=== PATIENT | female | born 1975 | race Caucasian/White ===

== ENCOUNTER 2018-04-03 11:03 | Emergency (ER) | payer BC ==
[2018-04-03] MEDS ORDERED: Aspirin 81 MG Tab.Chew PO ONE (11:21)
[2018-04-03 11:49] LABS: CHLORIDE,CL 105 mmol/L (98-107); SODIUM,NA 140 mmol/L (136-145)
[2018-04-03] MEDS ORDERED: LORazepam 0.5 MG Tab PO ONE (12:20)
[2018-04-03] MEDS ORDERED: LORazepam 1 MG Tab PO ONE (12:21)
--- NOTE | 2018-04-03 12:29 | EDM.PDOC ---
ED HPI GENERAL MEDICAL PROBLEM - General Chief Complaint: Chest Pain Stated Complaint: CHEST PAIN Time Seen by Provider: 04/03/18 11:10 Source of Information: Reports: Patient History Limitations: Reports: No Limitations - History of Present Illness INITIAL COMMENTS - FREE TEXT/NARRATIVE: Patient is a 42-year-old who calls with intermittent chest pain states this has been going on for quite a while she was seen by cardiology had an anger On Wednesday which showed normal coronaries and there is se tricuspid valve regurgitation at this time she was scheduled for surgery Onset: Gradual Duration: Day(s):, Chronic Location: Reports: Chest Quality: Reports: Pressure Severity: Moderate Improves with: Reports: None Worsens with: Reports: Other (Stress) Context: Reports: Other (Stress) Associated Symptoms: Reports: Chest Pain Chest Pain Score (Numeric/FACES): 4 - Related Data Allergies Allergy/AdvReac Type Severity Reaction Status Date / Time No Known Allergies Allergy Verified 04/03/18 11:16 Home Meds: Home Meds Ibuprofen 800 mg PO ASDIRECTED 04/03/18 [History] Past Medical History Cardiovascular History: Reports: Heart Murmur, Other (See Below) Other Cardiovascular History: Upcoming bicuspid valve replacement 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 - Past Surgical History Cardiovascular Surgical History: Reports: Other (See Below) Other Cardiovascular Surgeries/Procedures: Angiogram, TERA Social & Family History - Tobacco Use Smoking Status *Q: Current Every Day Smoker Years of Tobacco use: 25 Packs/Tins Daily: 0.5 ED ROS GENERAL - Review of Systems Review Of Systems: See Below Constitutional: Reports: No Symptoms HEENT: Reports: No Symptoms Respiratory: Reports: No Symptoms Cardiovascular: Reports: Chest Pain, Dyspnea on Exertion, Palpitations Endocrine: Reports: No Symptoms GI/Abdominal: Reports: No Symptoms : Reports: No Symptoms Musculoskeletal: Reports: No Symptoms Skin: Reports: No Symptoms Neurological: Reports: No Symptoms Psychiatric: Reports: No Symptoms Hematologic/Lymphatic: Reports: No Symptoms Immunologic: Reports: No Symptoms ED EXAM, GENERAL - Physical Exam Exam: See Below Exam Limited By: No Limitations General Appearance: Alert, WD/WN, No Apparent Distress Ears: Normal External Exam, Normal Canal, Hearing Grossly Normal, Normal TMs Ear Exam: Bilateral Ear: Auricle Normal, Canal Normal, TM normal Nose: Normal Inspection, Normal Mucosa, No Blood Throat/Mouth: Normal Inspection, Normal Lips, Normal Teeth, Normal Gums, Normal Oropharynx, Normal Voice, No Airway Compromise Head: Atraumatic, Normocephalic Neck: Normal Inspection, Supple, Non-Tender, Full Range of Motion Respiratory/Chest: No Respiratory Distress, Lungs Clear, Normal Breath Sounds, No Accessory Muscle Use, Chest Non-Tender Cardiovascular: Regular Rate, Rhythm, No Edema, Systolic Murmur GI/Abdominal: Normal Bowel Sounds, Soft, Non-Tender, No Organomegaly, No Distention, No Abnormal Bruit, No Mass (Female) Exam: Normal External Exam, Normal Speculum Exam, Normal Bimanual Exam Rectal (Female) Exam: Normal Exam, Normal Rectal Tone Back Exam: Normal Inspection, Full Range of Motion, NT Extremities: Normal Inspection, Normal Range of Motion, Non-Tender, Normal Capillary Refill, No Pedal Edema Neurological: Alert, Oriented, CN II-XII Intact, Normal Cognition, Normal Gait, Normal Reflexes, No Motor/Sensory Deficits Psychiatric: Normal Affect, Normal Mood Skin Exam: Warm, Dry, Intact, Normal Color, No Rash Lymphatic: No Adenopathy Course - Vital Signs Last Recorded V/S: Last Vital Signs Temp 97 F 04/03/18 11:18 Pulse 58 L 04/03/18 11:18 Resp 14 04/03/18 11:18 BP 138/62 04/03/18 11:18 Pulse Ox 99 04/03/18 11:18 - Orders/Labs/Meds Orders: Active Orders 24 hr Category Date Time Status EKG Documentation Completion [RC] ASDIRECTED Care 04/03/18 11:20 Active CXR [Chest 2V] [CR] Stat Exams 04/03/18 11:17 Taken EKG 12 Lead [EK] Routine Ther 04/03/18 11:20 Ordered Labs: Laboratory Tests 04/03/18 04/03/18 04/03/18 Range/Units 11:22 11:22 11:22 WBC 6.4 (4.0-10.2) K/uL RBC 4.19 (3.77-5.09) M/uL Hgb 13.0 (11.7-15.5) g/dL Hct 39.4 (34.0-46.0) % MCV 94.0 (84.0-98.0) fL MCH 31.0 (28.2-33.3) pg MCHC 33.0 (31.7-36.0) g/dL RDW 13.3 (11.2-14.1) % Plt Count 189 (150-350) K/uL Neut % (Auto) 69.1 (45.0-80.0) % Lymph % (Auto) 22.0 (10.0-50.0) % [place] % (Auto) 6.4 (2.0-14.0) % Eos % (Auto) 2.0 (0.0-5.0) % Baso % (Auto) 0.5 (0.0-2.0) % Neut # (Auto) 4.39 (1.40-7.00) K/uL Lymph # (Auto) 1.40 (0.50-3.50) K/uL [place] # (Auto) 0.41 (0.00-1.00) K/uL Eos # (Auto) 0.13 (0.00-0.50) K/uL Baso # (Auto) 0.03 (0.00-0.20) K/uL D-Dimer, Quantitative 143 (0-400) ng/mL Sodium 140 (136-145) mmol/L Potassium 3.6 (3.5-5.1) mmol/L Chloride 105 (98-107) mmol/L Carbon Dioxide 26.9 (21.0-32.0) mmol/L BUN 19 H (7-18) mg/dL Creatinine 0.78 (0.51-1.17) mg/dL Est Cr Clr Drug Dosing 93.81 mL/min Estimated GFR (MDRD) > 60 mL/min Glucose 105 (74-106) mg/dL Calcium 9.0 (8.5-10.1) mg/dL Troponin I 0.006 (0.000-0.056) ng/mL Meds: Medications Discontinued Medications Generic Name Dose Route Start Last Admin Trade Name Freq PRN Reason Stop Dose Admin Aspirin 324 mg 04/03/18 11:21 04/03/18 11:28 Aspirin PO 04/03/18 11:22 324 mg ONETIME ONE Administration Lorazepam 0.5 mg 04/03/18 12:20 Ativan PO 04/03/18 12:21 ONETIME ONE Lorazepam 1 mg 04/03/18 12:21 Ativan PO 04/03/18 12:22 ONETIME ONE Departure - Departure Time of Disposition: 12:30 Disposition: Home, Self-Care 01 Condition: Good Clinical Impression: Acute anxiety Tricuspid valve regurgitation Qualifiers: Cardiac valve disease etiology: etiology unspecified Qualified Code(s): I07.1 - Rheumatic tricuspid insufficiency Instructions: Nonspecific Chest Pain, [id number] Referrals: Sridevi Vazquez PA-C [Primary Care Provider] - Care Plan Goals: Patient will be sent on Ativan half a milligram twice daily for anxiety she is to quit smoking she is to follow-up with her primary or cardiology as needed at this time BMP was negative D dimers were negative troponins were negative will send home with - My Orders Last 24 Hours: My Active Orders 04/03/18 11:17 CXR [Chest 2V] [CR] Stat 04/03/18 11:20 EKG Documentation Completion [RC] ASDIRECTED EKG 12 Lead [EK] Routine - Assessment/Plan Last 24 Hours: My Active Orders 04/03/18 11:17 CXR [Chest 2V] [CR] Stat 04/03/18 11:20 EKG Documentation Completion [RC] ASDIRECTED EKG 12 Lead [EK] Routine
== END 2018-04-03 12:45 | disposition home or self-care (01) ==
LOC: LL.ED 11:03
DX: I07.1 Rheumatic tricuspid insufficiency (principal); F41.9 Anxiety disorder, unspecified; F17.210 Nicotine dependence, cigarettes, uncomplicated
CPT/HCPCS: 36000; 36415; 71046; 80048; 84484; 85025; 85379; 93005; 99285; A9270

== ENCOUNTER 2019-07-31 10:56 | Observation (INO) | payer BC ==
[2019-07-31] MEDS ORDERED: Metoprolol Tartrate 25 MG Tab PO ONE ×2 (11:13→12:38)
[2019-07-31 11:52] LABS: CHLORIDE,CL 106 mmol/L (98-107); SODIUM,NA 144 mmol/L (136-145)
--- NOTE | 2019-07-31 12:29 | EDM.PDOC ---
ED HPI GENERAL MEDICAL PROBLEM - General Chief Complaint: Chest Pain Stated Complaint: hrt rate feels irregular,lt arm tingling/heavy Time Seen by Provider: 07/31/19 11:10 Source of Information: Reports: Patient History Limitations: Reports: No Limitations - History of Present Illness INITIAL COMMENTS - FREE TEXT/NARRATIVE: Patient is a 44-year-old with known coronary arterial disease known heart disease she has history of aortic bowel replacement with a mechanical valve and had done well she also has a paced ventricular rhythm at this time. Onset: Today Duration: Hour(s):, Constant, Improving Location: Reports: Chest, Upper Extremity, Left (Tingling sensation) Quality: Reports: Dull Severity: Moderate Improves with: Reports: None - Related Data Allergies Allergy/AdvReac Type Severity Reaction Status Date / Time No Known Allergies Allergy Verified 07/31/19 11:32 Home Meds: Home Meds ALPRAZolam [Xanax] 0.125 mg PO Q12HR PRN 07/31/19 [History] Acetaminophen [Tylenol Extra Strength] 1,000 mg PO Q4HR PRN 07/31/19 [History] Amoxicillin 2,000 mg PO ONETIME PRN 07/31/19 [History] Aspirin [Ecotrin EC] 81 mg PO DAILY 07/31/19 [History] Cyclobenzaprine [Flexeril] 10 mg PO TID PRN 07/31/19 [History] Warfarin Sodium [Coumadin] 2.5 mg PO ASDIRECTED 07/31/19 [History] Warfarin [Coumadin] 5 mg PO ASDIRECTED 07/31/19 [History] atorvaSTATin [Lipitor] 20 mg PO ASDIRECTED 07/31/19 [History] buPROPion [buPROPion XL] 150 mg PO DAILY 07/31/19 [History] Past Medical History HEENT History: Reports: Impaired Vision Other HEENT History: wears glasses Cardiovascular History: Reports: CAD, Heart Murmur, Hypertension, Other (See Below) Other Cardiovascular History: congenital bicuspid aortic valve,Upcoming bicuspid valve replacement, aortic stenosis 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 Musculoskeletal History: Reports: Other (See Below) Other Musculoskeletal History: DJD,protruded lumbar disc Neurological History: Reports: Migraines Psychiatric History: Reports: ADD, Depression Endocrine/Metabolic History: Reports: Obesity/BMI 30+ Hematologic History: Reports: Other (See Below) Other Hematologic History: on chronic warfarin - Past Surgical History HEENT Surgical History: Reports: Myringotomy w Tube(s) Cardiovascular Surgical History: Reports: Pacer, Valve Replacement, Other (See Below) Other Cardiovascular Surgeries/Procedures: Angiogram, TERA, aortic valve replacement with metallic valve GI Surgical History: Reports: Appendectomy Female Surgical History: Reports: Section, Hysterectomy Social & Family History - Tobacco Use Smoking Status *Q: Former Smoker Years of Tobacco use: 30 Used Tobacco, but Quit: Yes Month/Year Tobacco Last Used: 07/2018 - Caffeine Use Caffeine Use: Reports: Coffee Other Caffeine Use: 2 cups with elevate - Recreational Drug Use Recreational Drug Use: No ED ROS GENERAL - Review of Systems Review Of Systems: See Below Constitutional: Reports: No Symptoms HEENT: Reports: No Symptoms Respiratory: Reports: No Symptoms Cardiovascular: Reports: Chest Pain, Blood Pressure Problem Endocrine: Reports: No Symptoms GI/Abdominal: Reports: No Symptoms : Reports: No Symptoms Musculoskeletal: Reports: No Symptoms Skin: Reports: No Symptoms Neurological: Reports: No Symptoms Hematologic/Lymphatic: Reports: No Symptoms Immunologic: Reports: No Symptoms ED EXAM, GENERAL - Physical Exam Exam: See Below Exam Limited By: No Limitations General Appearance: Alert, WD/WN, No Apparent Distress Eye Exam: Bilateral Eye: Abnormal EOM, Abnormal Pupil Ears: Normal External Exam, Normal Canal, Hearing Grossly Normal, Normal TMs Ear Exam: Bilateral Ear: Auricle Normal, Canal Normal, TM normal Nose: Normal Inspection, Normal Mucosa, No Blood Throat/Mouth: Normal Inspection, Normal Lips, Normal Teeth, Normal Gums, Normal Oropharynx, Normal Voice, No Airway Compromise Head: Atraumatic, Normocephalic Neck: Normal Inspection, Supple, Non-Tender, Full Range of Motion Respiratory/Chest: No Respiratory Distress, Lungs Clear, Normal Breath Sounds, No Accessory Muscle Use, Chest Non-Tender Cardiovascular: Regular Rate, Rhythm (Patient is paced), Other (Paced rhythm with an opening snap at the aortic valve) GI/Abdominal: Normal Bowel Sounds, Soft, Non-Tender, No Organomegaly, No Distention, No Abnormal Bruit, No Mass (Female) Exam: Normal External Exam, Deferred Rectal (Female) Exam: Deferred Back Exam: Decreased Range of Motion Extremities: Other (Left arm tingling sensation) Neurological: Alert, Oriented, CN II-XII Intact, Normal Cognition, Normal Gait, Normal Reflexes, No Motor/Sensory Deficits Psychiatric: Normal Affect, Normal Mood Skin Exam: Warm, Dry, Intact, Normal Color, No Rash Lymphatic: No Adenopathy Course - Vital Signs Last Recorded V/S: Last Vital Signs Temp 97.8 F 07/31/19 11:01 Pulse 70 07/31/19 11:54 Resp 17 07/31/19 11:54 BP 137/70 07/31/19 11:54 Pulse Ox 100 07/31/19 11:54 - Orders/Labs/Meds Orders: Active Orders 24 hr Category Date Time Status EKG Documentation Completion [RC] ASDIRECTED Care 07/31/19 11:12 Active Chest 1V Frontal [CR] Stat Exams 07/31/19 11:13 Taken Labs: Laboratory Tests 07/31/19 07/31/19 07/31/19 Range/Units 11:10 11:10 11:10 WBC 7.4 (4.0-10.2) K/uL RBC 4.37 (3.77-5.09) M/uL Hgb 13.1 (11.7-15.5) g/dL Hct 40.2 (34.0-46.0) % MCV 92.0 (84.0-98.0) fL MCH 30.0 (28.2-33.3) pg MCHC 32.6 (31.7-36.0) g/dL RDW 13.2 (11.2-14.1) % Plt Count 270 (150-350) K/uL Neut % (Auto) 62.1 (45.0-80.0) % Lymph % (Auto) 26.7 (10.0-50.0) % [place] % (Auto) 7.9 (2.0-14.0) % Eos % (Auto) 2.9 (0.0-5.0) % Baso % (Auto) 0.4 (0.0-2.0) % Neut # (Auto) 4.57 (1.40-7.00) K/uL Lymph # (Auto) 1.96 (0.50-3.50) K/uL [place] # (Auto) 0.58 (0.00-1.00) K/uL Eos # (Auto) 0.21 (0.00-0.50) K/uL Baso # (Auto) 0.03 (0.00-0.20) K/uL PT 16.7 H D (9.5-12.0) SEC INR 1.6 APTT 39.7 H (21.0-31.3) SEC D-Dimer, Quantitative (0-400) ng/mL Sodium 144 (136-145) mmol/L Potassium 3.4 L (3.5-5.1) mmol/L Chloride 106 (98-107) mmol/L Carbon Dioxide 25.9 (21.0-32.0) mmol/L BUN 10 (7-18) mg/dL Creatinine 0.75 (0.51-1.17) mg/dL Est Cr Clr Drug Dosing 95.55 mL/min Estimated GFR (MDRD) > 60 mL/min Glucose 80 (74-106) mg/dL Lactic Acid (0.4-2.0) mmol/L Calcium 9.0 (8.5-10.1) mg/dL Magnesium 1.9 (1.8-2.4) mg/dL Total Bilirubin 0.3 (0.2-1.0) mg/dL AST 18 (15-37) U/L ALT 28 (12-78) U/L Alkaline Phosphatase 79 (46-116) IU/L Creatine Kinase 57 (26-308) U/L Creatine Kinase Index 1.1 (0.0-2.5) % CK-MB (CK-2) 0.60 (0.00-3.60) ng/mL Troponin I 0.000 (0.000-0.056) ng/mL NT-Pro-B Natriuret Pep 236 H (0-125) pg/mL Total Protein 7.5 (6.4-8.2) g/dL Albumin 3.8 (3.4-5.0) g/dL TSH, Ultra Sensitive 1.876 (0.358-3.740) mIU/mL 07/31/19 07/31/19 Range/Units 11:10 11:20 WBC (4.0-10.2) K/uL RBC (3.77-5.09) M/uL Hgb (11.7-15.5) g/dL Hct (34.0-46.0) % MCV (84.0-98.0) fL MCH (28.2-33.3) pg MCHC (31.7-36.0) g/dL RDW (11.2-14.1) % Plt Count (150-350) K/uL Neut % (Auto) (45.0-80.0) % Lymph % (Auto) (10.0-50.0) % [place] % (Auto) (2.0-14.0) % Eos % (Auto) (0.0-5.0) % Baso % (Auto) (0.0-2.0) % Neut # (Auto) (1.40-7.00) K/uL Lymph # (Auto) (0.50-3.50) K/uL [place] # (Auto) (0.00-1.00) K/uL Eos # (Auto) (0.00-0.50) K/uL Baso # (Auto) (0.00-0.20) K/uL PT (9.5-12.0) SEC INR APTT (21.0-31.3) SEC D-Dimer, Quantitative < 100 (0-400) ng/mL Sodium (136-145) mmol/L Potassium (3.5-5.1) mmol/L Chloride (98-107) mmol/L Carbon Dioxide (21.0-32.0) mmol/L BUN (7-18) mg/dL Creatinine (0.51-1.17) mg/dL Est Cr Clr Drug Dosing mL/min Estimated GFR (MDRD) mL/min Glucose (74-106) mg/dL Lactic Acid 1.2 (0.4-2.0) mmol/L Calcium (8.5-10.1) mg/dL Magnesium (1.8-2.4) mg/dL Total Bilirubin (0.2-1.0) mg/dL AST (15-37) U/L ALT (12-78) U/L Alkaline Phosphatase (46-116) IU/L Creatine Kinase (26-308) U/L Creatine Kinase Index (0.0-2.5) % CK-MB (CK-2) (0.00-3.60) ng/mL Troponin I (0.000-0.056) ng/mL NT-Pro-B Natriuret Pep (0-125) pg/mL Total Protein (6.4-8.2) g/dL Albumin (3.4-5.0) g/dL TSH, Ultra Sensitive (0.358-3.740) mIU/mL Meds: Medications Discontinued Medications Generic Name Dose Route Start Last Admin Trade Name Freq PRN Reason Stop Dose Admin Metoprolol Tartrate 25 mg 07/31/19 11:13 07/31/19 11:17 Lopressor PO 07/31/19 11:14 25 mg ONETIME ONE Administration Departure - Departure Time of Disposition: 12:34 Disposition: Refer to Observation Clinical Impression: Atypical chest pain Referrals: Sridevi Vazquez PA-C [Primary Care Provider] - Additional Instructions: Spoke with cardiology patient has a pace rhythm therefore the EKG changes is probably secondary to the paced rhythm cardiology said to admit her and rule out at this time patient is doing much better relaxing by - My Orders Last 24 Hours: My Active Orders 07/31/19 11:12 EKG Documentation Completion [RC] ASDIRECTED 07/31/19 11:13 Chest 1V Frontal [CR] Stat - Assessment/Plan Last 24 Hours: My Active Orders 07/31/19 11:12 EKG Documentation Completion [RC] ASDIRECTED 07/31/19 11:13 Chest 1V Frontal [CR] Stat
[2019-07-31] MEDS ORDERED: Sodium Chloride 0.9% 10 ML Syringe FLUSH PRN (12:38)
[2019-07-31] MEDS ORDERED: Aspirin 81 MG Tab.Chew PO ONE (12:38)
[2019-07-31] MEDS ORDERED: Nitroglycerin 0.4 MG Tab.SL SL PRN (12:38)
[2019-07-31] MEDS: Enoxaparin 80 MG/0.8 ML Syringe SUBCUT SCH (14:09)
[2019-07-31] MEDS ORDERED: Temazepam 15 MG Cap PO PRN (19:56)
[2019-08-01] MEDS: Enoxaparin 80 MG/0.8 ML Syringe SUBCUT SCH (07:00)
--- NOTE | 2019-08-01 07:40 | PCM.DCSUM1 ---
Discharge Summary - Hospital Course Free Text/Narrative:: Patient is a 44-year-old who seen today for discharge home troponins3 were negative INR today was 1.3 at this time patient will be sent home with Coumadin 2.5 mg daily 3 days total follow-up with primary Diagnosis: Stroke: No - Discharge Data Discharge Date: 08/01/19 Discharge Disposition: Home, Self-Care 01 Condition: Good - Referral to Home Health Primary Care Physician: Sridevi Vazquez PA-C - Patient Instructions Diet: Heart Healthy Diet Driving: May Drive Today Showering/Bathing: January Shower - Discharge Plan *PRESCRIPTION DRUG MONITORING PROGRAM REVIEWED*: No Home Medications: Home Meds ALPRAZolam [Xanax] 0.125 mg PO Q12HR PRN 07/31/19 [History] Acetaminophen [Tylenol Extra Strength] 1,000 mg PO Q4HR PRN 07/31/19 [History] Amoxicillin 2,000 mg PO ONETIME PRN 07/31/19 [History] Aspirin [Ecotrin EC] 81 mg PO DAILY 07/31/19 [History] Cyclobenzaprine [Flexeril] 10 mg PO TID PRN 07/31/19 [History] Warfarin Sodium [Coumadin] 2.5 mg PO ASDIRECTED 07/31/19 [History] Warfarin [Coumadin] 5 mg PO ASDIRECTED 07/31/19 [History] atorvaSTATin [Lipitor] 20 mg PO ASDIRECTED 07/31/19 [History] buPROPion [buPROPion XL] 150 mg PO DAILY 07/31/19 [History] Forms: ED Department Discharge Referrals: Sridevi Vazquez PA-C [Primary Care Provider] - - Discharge Summary/Plan Comment DC Time >30 min.: No Discharge Summary/Plan Comment: Patient will be sent home on Coumadin 2.5 mg by mouth daily 3 days then recheck PT/INR she should also take metoprolol 25 mg ER daily - General Info Date of Service: 08/01/19 Functional Status: Reports: Tolerating Diet - Review of Systems General: Reports: No Symptoms HEENT: Reports: No Symptoms Pulmonary: Reports: No Symptoms Cardiovascular: Reports: No Symptoms Gastrointestinal: Reports: No Symptoms Skin: Reports: No Symptoms Neurological: Reports: No Symptoms Psychiatric: Reports: No Symptoms - Patient Data Vitals - Most Recent: Last Vital Signs Temp 98.4 F 08/01/19 07:08 Pulse 70 08/01/19 07:08 Resp 16 08/01/19 07:08 BP 136/73 08/01/19 07:08 Pulse Ox 100 08/01/19 07:08 Weight - Most Recent: 195 lb 14.4 oz Lab Results - Last 24 hrs: Laboratory Results - last 24 hr 07/31/19 07/31/19 07/31/19 Range/Units 11:10 11:10 11:10 WBC 7.4 (4.0-10.2) K/uL RBC 4.37 (3.77-5.09) M/uL Hgb 13.1 (11.7-15.5) g/dL Hct 40.2 (34.0-46.0) % MCV 92.0 (84.0-98.0) fL MCH 30.0 (28.2-33.3) pg MCHC 32.6 (31.7-36.0) g/dL RDW 13.2 (11.2-14.1) % Plt Count 270 (150-350) K/uL Neut % (Auto) 62.1 (45.0-80.0) % Lymph % (Auto) 26.7 (10.0-50.0) % [place] % (Auto) 7.9 (2.0-14.0) % Eos % (Auto) 2.9 (0.0-5.0) % Baso % (Auto) 0.4 (0.0-2.0) % Neut # (Auto) 4.57 (1.40-7.00) K/uL Lymph # (Auto) 1.96 (0.50-3.50) K/uL [place] # (Auto) 0.58 (0.00-1.00) K/uL Eos # (Auto) 0.21 (0.00-0.50) K/uL Baso # (Auto) 0.03 (0.00-0.20) K/uL PT 16.7 H D (9.5-12.0) SEC INR 1.6 APTT 39.7 H (21.0-31.3) SEC D-Dimer, Quantitative (0-400) ng/mL Sodium 144 (136-145) mmol/L Potassium 3.4 L (3.5-5.1) mmol/L Chloride 106 (98-107) mmol/L Carbon Dioxide 25.9 (21.0-32.0) mmol/L BUN 10 (7-18) mg/dL Creatinine 0.75 (0.51-1.17) mg/dL Est Cr Clr Drug Dosing 95.55 mL/min Estimated GFR (MDRD) > 60 mL/min Glucose 80 (74-106) mg/dL Lactic Acid (0.4-2.0) mmol/L Calcium 9.0 (8.5-10.1) mg/dL Magnesium 1.9 (1.8-2.4) mg/dL Total Bilirubin 0.3 (0.2-1.0) mg/dL AST 18 (15-37) U/L ALT 28 (12-78) U/L Alkaline Phosphatase 79 (46-116) IU/L Creatine Kinase 57 (26-308) U/L Creatine Kinase Index 1.1 (0.0-2.5) % CK-MB (CK-2) 0.60 (0.00-3.60) ng/mL Troponin I 0.000 (0.000-0.056) ng/mL NT-Pro-B Natriuret Pep 236 H (0-125) pg/mL Total Protein 7.5 (6.4-8.2) g/dL Albumin 3.8 (3.4-5.0) g/dL TSH, Ultra Sensitive 1.876 (0.358-3.740) mIU/mL 07/31/19 07/31/19 07/31/19 Range/Units 11:10 11:20 16:45 WBC (4.0-10.2) K/uL RBC (3.77-5.09) M/uL Hgb (11.7-15.5) g/dL Hct (34.0-46.0) % MCV (84.0-98.0) fL MCH (28.2-33.3) pg MCHC (31.7-36.0) g/dL RDW (11.2-14.1) % Plt Count (150-350) K/uL Neut % (Auto) (45.0-80.0) % Lymph % (Auto) (10.0-50.0) % [place] % (Auto) (2.0-14.0) % Eos % (Auto) (0.0-5.0) % Baso % (Auto) (0.0-2.0) % Neut # (Auto) (1.40-7.00) K/uL Lymph # (Auto) (0.50-3.50) K/uL [place] # (Auto) (0.00-1.00) K/uL Eos # (Auto) (0.00-0.50) K/uL Baso # (Auto) (0.00-0.20) K/uL PT (9.5-12.0) SEC INR APTT (21.0-31.3) SEC D-Dimer, Quantitative < 100 (0-400) ng/mL Sodium (136-145) mmol/L Potassium (3.5-5.1) mmol/L Chloride (98-107) mmol/L Carbon Dioxide (21.0-32.0) mmol/L BUN (7-18) mg/dL Creatinine (0.51-1.17) mg/dL Est Cr Clr Drug Dosing mL/min Estimated GFR (MDRD) mL/min Glucose (74-106) mg/dL Lactic Acid 1.2 (0.4-2.0) mmol/L Calcium (8.5-10.1) mg/dL Magnesium (1.8-2.4) mg/dL Total Bilirubin (0.2-1.0) mg/dL AST (15-37) U/L ALT (12-78) U/L Alkaline Phosphatase (46-116) IU/L Creatine Kinase (26-308) U/L Creatine Kinase Index (0.0-2.5) % CK-MB (CK-2) (0.00-3.60) ng/mL Troponin I 0.002 (0.000-0.056) ng/mL NT-Pro-B Natriuret Pep (0-125) pg/mL Total Protein (6.4-8.2) g/dL Albumin (3.4-5.0) g/dL TSH, Ultra Sensitive (0.358-3.740) mIU/mL 07/31/19 08/01/19 08/01/19 Range/Units 22:30 04:35 04:35 WBC (4.0-10.2) K/uL RBC (3.77-5.09) M/uL Hgb (11.7-15.5) g/dL Hct (34.0-46.0) % MCV (84.0-98.0) fL MCH (28.2-33.3) pg MCHC (31.7-36.0) g/dL RDW (11.2-14.1) % Plt Count (150-350) K/uL Neut % (Auto) (45.0-80.0) % Lymph % (Auto) (10.0-50.0) % [place] % (Auto) (2.0-14.0) % Eos % (Auto) (0.0-5.0) % Baso % (Auto) (0.0-2.0) % Neut # (Auto) (1.40-7.00) K/uL Lymph # (Auto) (0.50-3.50) K/uL [place] # (Auto) (0.00-1.00) K/uL Eos # (Auto) (0.00-0.50) K/uL Baso # (Auto) (0.00-0.20) K/uL PT 14.0 H (9.5-12.0) SEC INR 1.3 APTT (21.0-31.3) SEC D-Dimer, Quantitative (0-400) ng/mL Sodium (136-145) mmol/L Potassium (3.5-5.1) mmol/L Chloride (98-107) mmol/L Carbon Dioxide (21.0-32.0) mmol/L BUN (7-18) mg/dL Creatinine (0.51-1.17) mg/dL Est Cr Clr Drug Dosing mL/min Estimated GFR (MDRD) mL/min Glucose (74-106) mg/dL Lactic Acid (0.4-2.0) mmol/L Calcium (8.5-10.1) mg/dL Magnesium (1.8-2.4) mg/dL Total Bilirubin (0.2-1.0) mg/dL AST (15-37) U/L ALT (12-78) U/L Alkaline Phosphatase (46-116) IU/L Creatine Kinase (26-308) U/L Creatine Kinase Index (0.0-2.5) % CK-MB (CK-2) (0.00-3.60) ng/mL Troponin I 0.000 0.003 (0.000-0.056) ng/mL NT-Pro-B Natriuret Pep (0-125) pg/mL Total Protein (6.4-8.2) g/dL Albumin (3.4-5.0) g/dL TSH, Ultra Sensitive (0.358-3.740) mIU/mL Med Orders - Current: Current Medications Enoxaparin Sodium (Lovenox) 80 mg SUBCUT DAILY CARMINA Last Admin: 08/01/19 07:00 Dose: 80 mg Nitroglycerin (Nitrostat) 0.4 mg SL Q5M PRN PRN Reason: Chest Pain Stop: 08/01/19 12:42 Sodium Chloride (Saline Flush) 10 ml FLUSH ASDIRECTED PRN PRN Reason: Keep Vein Open Last Admin: 07/31/19 20:26 Dose: 10 ml Temazepam (Restoril) 15 mg PO BEDTIME PRN PRN Reason: Insomnia Last Admin: 07/31/19 20:24 Dose: 15 mg Discontinued Medications Aspirin (Aspirin) 324 mg PO ONETIME ONE Stop: 07/31/19 12:39 Last Admin: 07/31/19 14:09 Dose: 324 mg Metoprolol Tartrate (Lopressor) 25 mg PO ONETIME ONE Stop: 07/31/19 11:14 Last Admin: 07/31/19 11:17 Dose: 25 mg Metoprolol Tartrate (Lopressor) 25 mg PO ONETIME ONE Stop: 07/31/19 12:39 Last Admin: 07/31/19 14:16 Dose: Not Given
== END 2019-08-01 08:02 | disposition home or self-care (01) ==
LOC: LL.ED 10:56 → UNDOADMOB 12:40 → LL.MS 12:40
PROVIDERS: ADMIT Family Medicine; ATTEND Family Medicine
DX: R07.89 Other chest pain (principal); I25.10 Atherosclerotic heart disease of native coronary artery without angina pectoris; I10 Essential (primary) hypertension; G43.909 Migraine, unspecified, not intractable, without status migrainosus; M19.90 Unspecified osteoarthritis, unspecified site; F32.9 Major depressive disorder, single episode, unspecified; E66.9 Obesity, unspecified; Z87.891 Personal history of nicotine dependence; Z95.2 Presence of prosthetic heart valve
CPT/HCPCS: 36415; 71045; 80053; 82550; 82553; 83605; 83735; 83880; 84443; 84484; 85025; 85379; 85610; 85730; 93005; 96372; 99285; A9270-GY; G0378; J1650

== ENCOUNTER 2020-03-20 06:52 | Emergency (ER) | payer BC ==
--- NOTE | 2020-03-20 07:02 | EDM.PDOC ---
ED HPI GENERAL MEDICAL PROBLEM - General Chief Complaint: Lower Extremity Injury/Pain Stated Complaint: rolled right ankle Time Seen by Provider: 03/20/20 06:55 Source of Information: Reports: Patient, Old Records ([facility] EMR. No paper hospital chart available.) History Limitations: Reports: No Limitations - History of Present Illness INITIAL COMMENTS - FREE TEXT/NARRATIVE: The patient drove herself to the emergency room via private automobile for evaluation of 04/29 right ankle pain after she twisted her ankle while gardening at home at about 20:00 hours on 03/19. She was stepping off a concrete slab with no history of a fall, head injury, neck/back pain, neurological deficits, or other complaints or injuries. Symptoms have been refractory to ice packs and also Tylenol with last dose at 650 mg at 05:30 a.m. this morning. She denies any previous injury to this ankle. The patient denies any chest pain/pressure, heart flutter, dizziness, orthostasis, orthopnea, diaphoresis, paresthesias, recent decreased exercise tolerance, or any other anginal-type symptoms. No recent history of abdominal pain, heartburn, emesis, diarrhea, melena, gross hematoc hezia, or any food intolerance, including fatty foods, etc., although some intermittent nausea secondary to her pain. The patient also denies any recent fever, cough, wheezing, dyspnea, etc.. Onset: Sudden Onset Date: 03/19/20 Onset Time: 20:00 Duration: Constant, Getting Worse Location: Reports: Lower Extremity, Right. Denies: Head, Face, Neck, Chest, Abdomen, Back, Pelvis, Upper Extremity, Left, Upper Extremity, Right, Lower Extremity, Left, Radiates to Quality: Reports: Throbbing Severity: Moderate Improves with: Reports: Rest Worsens with: Reports: Movement Context: Reports: Trauma (Above) Associated Symptoms: Reports: Nausea/Vomiting (As above). 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: Acetaminophen, Cold Therapy Right Ankle Pain Score (Numeric/FACES): 8 - Related Data Allergies Allergy/AdvReac Type Severity Reaction Status Date / Time serotonin reuptake inhibitors Allergy Other Uncoded 03/20/20 07:02 Home Meds: Home Meds ALPRAZolam [Xanax] 0.125 mg PO Q12HR PRN 07/31/19 [History] Amoxicillin 2,000 mg PO ONETIME PRN 07/31/19 [History] Aspirin [Ecotrin EC] 81 mg PO DAILY 07/31/19 [History] Cyclobenzaprine [Flexeril] 10 mg PO TID PRN 07/31/19 [History] Warfarin Sodium [Coumadin] 2.5 mg PO ASDIRECTED 07/31/19 [History] Warfarin [Coumadin] 5 mg PO ASDIRECTED 07/31/19 [History] atorvaSTATin [Lipitor] 20 mg PO ASDIRECTED 07/31/19 [History] buPROPion [buPROPion XL] 150 mg PO DAILY 07/31/19 [History] Acetaminophen 2 tab PO Q4HR PRN 03/20/20 [History] Past Medical History HEENT History: Reports: Allergic Rhinitis, Impaired Vision, Otitis Media Other HEENT History: Patient wears glasses. Cardiovascular History: Reports: Arrhythmia, CAD, Heart Murmur, High Cholesterol, Hypertension, Pacemaker, Other (See Below). Denies: Afib, Aneurysm, Blood Clots/VTE/DVT, Cardiomyopathy, Heart Failure Other Cardiovascular History: Congenital bicuspid aortic valve with history of severe aortic valve stenosis and insufficiency requiring valvular replacement as below. Long history of bradycardia, including prior to pacemaker placement as below. PACs, PVCs, and complete right bundle branch block. CAR DETAILER History: Reports: Dysfunctional Uterine Bleeding, Fibroids, : 3 Para: 3 LMP (Approximate): Other (See Below) Other CAR DETAILER History: Surgical menopause. All deliveries by with premature delivery at 6 months gestation. Otherwise no complications during deliveries or pregnancies Musculoskeletal History: Reports: Arthritis, Back Pain, Chronic, Osteoarthritis, Other (See Below). Denies: Fracture Other Musculoskeletal History: DJD, protruded lumbar disc Neurological History: Reports: Headaches, Chronic, Migraines Psychiatric History: Reports: ADD, Anxiety, Depression Endocrine/Metabolic History: Reports: Obesity/BMI 30+ Hematologic History: Reports: Anemia, Iron Deficiency, Other (See Below). Denies: Blood Transfusion(s) Other Hematologic History: History of severe anemia secondary to dysfunctional uterine bleeding. Note current chronic warfarin therapy secondary to her aortic valve replacement. - Past Surgical History HEENT Surgical History: Reports: Myringotomy w Tube(s), Other (See Below). Denies: Adenoidectomy, Tonsillectomy Other HEENT Surgeries/Procedures: PE tubes as a child. Cardiovascular Surgical History: Reports: Pacer, Valve Replacement, Other (See Below). Denies: Coronary Artery Bypass, Coronary Artery Stent Other Cardiovascular Surgeries/Procedures: Mechanical aortic valve replacement on 04/27/18. Pacemaker placement on 04/28/18. GI Surgical History: Reports: Appendectomy, Other (See Below) Other GI Surgeries/Procedures: Appendectomy in her 30s. Female Surgical History: Reports: Section, Hysterectomy, Other (See Below). Denies: Salpingo-Oophorectomy, Tubal Ligation Other Female Surgeries/Procedures: Partial hysterectomy secondary to dysfunctional uterine bleeding at age 31. - Past Imaging History Past Imaging History: Reports: Angiography (Heart catheterization on 04/14/18.), Cardiac Echo (04/14/18 with ejection fraction of 65%.), CAT Scan (CT of the chest on 04/14/18.), Mammogram (Last in July 2019 with records not available), PFT (04/14/18.), Stress Testing (Low level cardiac stress test on 05/12/18.) Social & Family History - Tobacco Use Smoking Status *Q: Former Smoker Tobacco Use Within Last Twelve Months: No Years of Tobacco use: 29 Packs/Tins Daily: 1 Packs/Tins Daily Comment: Smoked between ages 13 and 42. 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 ED EXAM, GENERAL - Physical Exam Exam: See Below Exam Limited By: No Limitations General Appearance: Alert, WD/WN, No Apparent Distress, Anxious (Mild) Head: Atraumatic, Normocephalic. No: Facial Swelling, Facial Tenderness, Sinus Tenderness Neck: Normal Inspection, Supple, Non-Tender, Full Range of Motion. No: Lymphadenopathy (L), Lymphadenopathy (R), Thyromegaly Respiratory/Chest: No Respiratory Distress, Lungs Clear, Normal Breath Sounds, No Accessory Muscle Use, Chest Non-Tender. No: Pleural Rub, Retractions Cardiovascular: Normal Peripheral Pulses, Regular Rate, Rhythm, No Edema, No Gallop, No JVD, No Murmur (With mechanical aortic valve click), No Rub. No: Gallop/S3, Gallop/S4, Extra Beats, Friction Rub Peripheral Pulses: 2+: Radial (L), Radial (R), Dorsalis Pedis (R) GI/Abdominal: Normal Bowel Sounds, Soft, Non-Tender, No Organomegaly, No Distention, No Abnormal Bruit, No Mass, Pelvis Stable, Other (obese). No: Guarding (Female) Exam: Deferred Rectal (Female) Exam: Deferred Back Exam: Normal Inspection, Full Range of Motion. No: CVA Tenderness (L), CVA Tenderness (R), Muscle Spasm Extremities: No Pedal Edema, Normal Capillary Refill, Joint Swelling (Mild to moderate right lateral malleolar swelling), Leg Pain (Moderate palpation pain over the lateral right ankle with no joint instability including negative anterior drawer test, etc. by limited exam), Limited Range of Motion (Right ankle). No: Pedal Edema, Tabby's Sign Neurological: Alert, Oriented, CN II-XII Intact, Normal Cognition, Normal Gait, No Motor/Sensory Deficits Psychiatric: Anxious (Mild). No: Depressed Mood Skin Exam: Warm, Dry, Intact, Normal Color, No Rash, Tattoo(s) (Multiple). No: Diaphoretic, Wound/Incision Lymphatic: No Adenopathy ED TRAUMA EXTREMITY PROCEDURES - Splinting Right Lower Extremity Splint Site: Right ankle Pre-Procedure NV Status: Normal Post-Procedure NV Status: Normal Splint Material: Air Splint, Other (Reynaldo wrap) Splint Design: Stirrup Applied & Form Fitted By: Nurse Provider Post-Splint Application NV Check: NV Status Normal, Good Position Complications: No Course - Vital Signs Last Recorded V/S: Last Vital Signs Temp 36.7 C 03/20/20 07:00 Pulse 71 03/20/20 07:00 Resp 18 03/20/20 07:00 BP 120/98 H 03/20/20 07:00 Pulse Ox 99 03/20/20 07:00 Vital Signs - 24 hr 03/20/20 07:00 Temperature [ 36.7 C Temporal] Pulse, 71 Peripheral [ Pulse Oximetry] Respiratory 18 Rate Blood Pressure 120/98 H [Left Upper Arm ] O2 Sat by Pulse 99 Oximetry - Orders/Labs/Meds Orders: Active Orders 24 hr Category Date Time Status Ankle Min 3V Rt [CR] Stat Exams 03/20/20 07:02 Ordered Durable Medical Equipment for Discharge [DME for Oth 03/20/20 07:25 Ordered Discharge] [COMM] Routine Durable Medical Equipment for Discharge [DME for Oth 03/20/20 07:25 Ordered Discharge] [COMM] Routine Durable Medical Equipment for Discharge [DME for Oth 03/20/20 07:26 Ordered Discharge] [COMM] Routine Obtain Past Medical Record [OM.PC] Routine Oth 03/20/20 07:02 Active Labs: None Meds: None - Radiology Interpretation Free Text/Narrative:: X-rays of the right ankle, 3 views, shows no evidence of fracture, dislocation, etc. Mild soft tissue swelling and osteoarthritic changes noted. Departure - Departure Time of Disposition: 07:52 Disposition: Home, Self-Care 01 Condition: Good Clinical Impression: History of aortic valve replacement, Mixed anxiety depressive disorder, Hyperlipidemia Ankle sprain Qualifiers: Encounter type: initial encounter Involved ligament of ankle: tibiofibular ligament Laterality: right Qualified Code(s): S93.431A - Sprain of tibiofibular ligament of right ankle, initial encounter Hypertension Qualifiers: Hypertension type: essential hypertension Qualified Code(s): I10 - Essential (primary) hypertension Osteoarthritis Qualifiers: Osteoarthritis location: multiple joints Osteoarthritis type: primary Qualified Code(s): M89.49 - Other hypertrophic osteoarthropathy, multiple sites - Discharge Information *PRESCRIPTION DRUG MONITORING PROGRAM REVIEWED*: Not Applicable *COPY OF PRESCRIPTION DRUG MONITORING REPORT IN PATIENT SUBHA: Not Applicable Instructions: Crutch Use, Adult, [id number], Ankle Sprain, [id number] Forms: ED Department Discharge, ED Return to Work/School Form Additional Instructions: 1. Followup with your regular provider in 7 days as directed for reevaluation and recommended repeat INR. Repeat x-rays of the right ankle depending on your symptoms at follow-up. Bring these discharge instructions with you to that visit. 2. Tylenol 650 mg by mouth every 4 hours when necessary as directed. Use this medication with discretion as discussed secondary to your current Coumadin therapy 3. Use air ankle splint and Reynaldo wrap at all times with exception of bathing with limited weightbearing on the right leg as tolerated. Crutches to be used as needed and directed 4. Ice packs and leg elevation as discussed 5. Work excuse- See Form 6. Immediately after this visit verify that your cellular telephone's voicemail has been activated and is empty. Also verify that your home telephone's answering machine is operating properly and has space to receive messages. Note that it is sometimes necessary for us to be able to contact you at a later date to discuss your medical care. 7. Please remember that we are ALWAYS here for you and want to answer any questions you may have. Feel free to call the hospital any time and we call you back TR[place]. Sepsis Event Note (ED) - Focused Exam Vital Signs: Vital Signs Temp Pulse Resp BP Pulse Ox 03/20/20 07:00 36.7 C 71 18 120/98 H 99 - Problem List & Annotations (1) Ankle sprain SNOMED Code(s): 31610245 Code(s): S93.409A - SPRAIN OF UNSP LIGAMENT OF UNSPECIFIED ANKLE, INIT ENCNTR Status: Acute Priority: High Current Visit: Yes Onset Date: 03/19/20 Annotation/Comment:: Minor ankle sprain. Symptomatic relief as per discharge instructions. Close follow-up by regular provider. Work excuse provided. Activity restrictions, etc. were discussed. Qualifiers: Encounter type: initial encounter Involved ligament of ankle: tibiofibular ligament Laterality: right Qualified Code(s): S93.431A - Sprain of tibiofibular ligament of right ankle, initial encounter (2) Mixed anxiety depressive disorder SNOMED Code(s): 465308549 Code(s): F41.8 - OTHER SPECIFIED ANXIETY DISORDERS Status: Chronic Priority: Medium Current Visit: Yes Annotation/Comment:: Moderate control based on today's exam. Continue to observe closely by her regular provider (3) History of aortic valve replacement SNOMED Code(s): 9360815325923, 852633899, 6392190960169 Code(s): Z95.2 - PRESENCE OF PROSTHETIC HEART VALVE Status: Acute Priority: High Current Visit: No Onset Date: 04/27/18 Annotation/Comment:: No chest pain or anginal type symptoms. INR to be repeated at follow-up secondary to planned regular Tylenol use by patient history. (4) Osteoarthritis SNOMED Code(s): 347524389 Code(s): M19.90 - UNSPECIFIED OSTEOARTHRITIS, UNSPECIFIED SITE Status: Chronic Priority: Medium Current Visit: Yes Annotation/Comment:: Otherwise stable by history with no evidence of other injuries. Qualifiers: Osteoarthritis location: multiple joints Osteoarthritis type: primary Qualified Code(s): M89.49 - Other hypertrophic osteoarthropathy, multiple sites (5) Hypertension SNOMED Code(s): 30990290 Code(s): I10 - ESSENTIAL (PRIMARY) HYPERTENSION Status: Chronic Priority: Medium Current Visit: Yes Annotation/Comment:: Somewhat elevated today likely secondary to her discomfort. Close follow-up by regular provider. Qualifiers: Hypertension type: essential hypertension Qualified Code(s): I10 - Essential (primary) hypertension (6) Hyperlipidemia SNOMED Code(s): 18807481 Code(s): E78.5 - HYPERLIPIDEMIA, UNSPECIFIED Status: Chronic Priority: Medium Current Visit: Yes Annotation/Comment:: Currently under therapy. Note current Coumadin. Qualifiers: Hyperlipidemia type: unspecified Qualified Code(s): E78.5 - Hyperlipidemia, unspecified - Problem List Review Problem List Initiated/Reviewed/Updated: Yes - My Orders Last 24 Hours: My Active Orders 03/20/20 07:02 Ankle Min 3V Rt [CR] Stat Obtain Past Medical Record [OM.PC] Routine 03/20/20 07:25 Durable Medical Equipment for Discharge [DME for Discharge] [COMM] Routine Durable Medical Equipment for Discharge [DME for Discharge] [COMM] Routine 03/20/20 07:26 Durable Medical Equipment for Discharge [DME for Discharge] [COMM] Routine - Assessment/Plan Last 24 Hours: My Active Orders 03/20/20 07:02 Ankle Min 3V Rt [CR] Stat Obtain Past Medical Record [OM.PC] Routine 03/20/20 07:25 Durable Medical Equipment for Discharge [DME for Discharge] [COMM] Routine Durable Medical Equipment for Discharge [DME for Discharge] [COMM] Routine 03/20/20 07:26 Durable Medical Equipment for Discharge [DME for Discharge] [COMM] Routine Assessment:: As above Plan: As above. Extensive precautions were given to the patient, who is in agreement with the treatment plan. See Patient Instructions for further treatment and plan.
== END 2020-03-20 07:45 | disposition home or self-care (01) ==
LOC: LL.ED 06:52
DX: S93.431A Sprain of tibiofibular ligament of right ankle, initial encounter (principal); I10 Essential (primary) hypertension; F41.8 Other specified anxiety disorders; E78.5 Hyperlipidemia, unspecified; M89.49 Other hypertrophic osteoarthropathy, multiple sites; I25.10 Atherosclerotic heart disease of native coronary artery without angina pectoris; M19.90 Unspecified osteoarthritis, unspecified site; F41.9 Anxiety disorder, unspecified; F32.9 Major depressive disorder, single episode, unspecified; Z87.891 Personal history of nicotine dependence; E66.9 Obesity, unspecified; Z88.8 Allergy status to other drugs, medicaments and biological substances; Z79.82 Long term (current) use of aspirin; Z79.899 Other long term (current) drug therapy; X50.1XXA Overexertion from prolonged static or awkward postures, initial encounter
CPT/HCPCS: 73610-RT; 99283-25